=== PATIENT | female | born 1965 | race Caucasian/White ===

== ENCOUNTER 2017-01-04 17:04 | Inpatient (IN) | payer MEDICAID ==
[2017-01-04 22:55] VITALS: BMI 19.5
--- NOTE | 2017-01-04 23:58 | CP.PCM.HP ---
History of Present Illness - History of Present Illness History of Present Illness: PCP: None Chief complaint: CVA with Left side weakness HPI: The hx is obtained from the Patient's family and the medical records. She is a 51 years old female with no past medical hx who was admitted at the [facility] on 01/01/17 with left side weakness, disarthria and a BP of 223/70mmHg. Diagnosed with Hypertensive Hemorrhagic CVA, Bleeding in the Right Basal Ganglia. Neurosurgery recommended no surgical intervention and conservative management. She was discharged and transferred to the [facility] for continued care and rehabilitation. The patient through an photogrammetric engineer referred no headaches, dizziness, vision disturbance, nadusea, vomits, cough, chest pain nor SOB. 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 absent: Chills, Fever, Headache - EENT Eyes: absent: Diplopia, Floaters, Photophobia, Requires Corrective Lenses Ears: absent: Decreased Hearing, Ear Discharge, Ear Pain, Tinnitus Nose/Mouth/Throat: absent: Epistaxis, Nasal Congestion, Nasal Discharge, Sinus Pain, Sinus Pressure - Cardiovascular Cardiovascular: absent: Chest Pain, Dyspnea, Edema - Respiratory Respiratory: absent: Cough, Dyspnea, Wheezing, Stridor - Gastrointestinal Gastrointestinal: absent: Abdominal Pain, Constipation, Diarrhea, Nausea, Vomiting - Genitourinary Genitourinary: absent: Dysuria, Flank Pain, Hematuria - Musculoskeletal Musculoskeletal: Muscle Weakness. absent: Arthralgias, Joint Swelling, Myalgias , Numbness - Integumentary Integumentary: absent: Pruritus, Rash, Skin Ulcer, Sores, Striae, Swelling - Neurological Neurological: Loss of Vision, Weakness. absent: Confusion, Dizziness, Headaches - Psychiatric Psychiatric: absent: Panic Attacks Additional comments: Schizophrenia - Endocrine Endocrine: absent: Palpitations, Polydipsia, Polyphagia, Polyuria - Hematologic/Lymphatic Hematologic: absent: Easy Bleeding, Easy Bruising Past Patient History - Past Medical History & Family History Past Medical History?: Yes - Past Social History Smoking Status: Never Smoked Chewing Tobacco Use: No Cigar Use: No Alcohol: None Drugs: Denies Home Situation {Lives}: With Family - CARDIAC Hx Cardiac Disorders: No - PULMONARY Hx Respiratory Disorders: No - NEUROLOGICAL Hx Neurological Disorder: No - HEENT Hx HEENT Problems: No - RENAL Hx Chronic Kidney Disease: No - ENDOCRINE/METABOLIC Hx Endocrine Disorders: No - HEMATOLOGICAL/ONCOLOGICAL Hx Blood Disorders: No - INTEGUMENTARY Hx Dermatological Problems: No - MUSCULOSKELETAL/RHEUMATOLOGICAL Hx Musculoskeletal Disorders: No Hx Falls: Yes - GASTROINTESTINAL Hx Gastrointestinal Disorders: No - GENITOURINARY/GYNECOLOGICAL Hx Genitourinary Disorders: No - PSYCHIATRIC Hx Schizophrenia: Yes Hx Substance Use: No - SURGICAL HISTORY Hx Surgeries: No - ANESTHESIA Hx Anesthesia: No Hx Anesthesia Reactions: No Meds Allergies/Adverse Reactions: Allergies Allergy/AdvReac Type Severity Reaction Status Date / Time No Known Allergies Allergy Verified 01/04/17 22:55 Physical Exam - Constitutional Appears: No Acute Distress - Head Exam Head Exam: ATRAUMATIC, NORMAL INSPECTION, NORMOCEPHALIC - Eye Exam Eye Exam: EOMI, Normal appearance Pupil Exam: NORMAL ACCOMODATION, PERRL, Unequal - ENT Exam ENT Exam: Mucous Membranes Moist, Normal Exam, Normal External Ear Exam, Normal Oropharynx Additional comments: bottom dentures - Neck Exam Neck exam: Positive for: Full Rom, Normal Inspection. Negative for: Lymphadenopathy, Tenderness - Respiratory Exam Respiratory Exam: Clear to Auscultation Bilateral. absent: Rales, Rhonchi, Wheezes - Cardiovascular Exam Cardiovascular Exam: REGULAR RHYTHM, RRR, +S1, +S2. absent: Gallop, JVD - GI/Abdominal Exam GI & Abdominal Exam: Normal Bowel Sounds, Soft. absent: Mass, Organomegaly, Tenderness - Rectal Exam Rectal Exam: Deferred - Extremities Exam Extremities exam: Positive for: normal inspection. Negative for: calf tenderness, joint swelling, pedal edema - Back Exam Back exam: NORMAL INSPECTION. absent: CVA tenderness (L), CVA tenderness (R) - Neurological Exam Neurological exam: Alert, Reflexes Normal Additional comments: Awake alert, Oriented x3; Left facial droop, Slow mentation, Motor Strength4/5 at left upper and left lower extremities, sensibility to light touch conserved. DTR conserved. - Psychiatric Exam Psychiatric exam: Flat Affect - Skin Skin Exam: Dry, Intact, Normal Color, Warm Results - Labs Labs: 01/04/17 Hb: 11.8 Ht: 36 WBC: 8.6 Na+: 134 K+: 3.9 BUN: 15 Creatinine: 1.3 Assessment & Plan - Assessment and Plan (Free Text) Assessment: #.Hypertensive Hemorrhagic Stroke Plan: 51 years old female with no past medical hx who was admitted at the [facility] on 01/01/17 with left side weakness, disarthria and a BP of 223/70mmHg. Diagnosed with Hypertensive Hemorrhagic CVA, Bleeding in the Right Basal Ganglia. She was transferred to the [facility] for continued care and rehabilitation. #. Hypertensive Hemorrhagic Stroke - Consult Dr Figueroa Meter Reading Clerk - OT/PT - Amlodipin 5mg BID - Lisinopril !)mg Daily - Labetalol 100mg TID - start ASA 81mg after one week - Start Lipitor after lipid panel - follow up with Jagjit Donnelly MD in one week #. Schizophrenia - consult Dr Abebe Psychiatrist - ([id number] daily/ arixept 10mg daily/ Abilify 10mg daily) on hold #. DVT prophylaxis with SCD #. Stress ulcer prophylaxis with Pantoprazole #. Code Status: Full - Date & Time Date: 01/04/17 Time: 23:58
[2017-01-05 07:44] LABS: BASO % 0.6 % (0.0-2.0); EOS # 0.2 K/uL (0.0-0.7); EOS % 1.9 % (0.0-4.0); HEMATOCRIT 35.7 % (34.0-47.0); LYMPH # 2.1 K/uL (1.0-4.3); LYMPH % 24.9 % (20.0-40.0); MEAN CELL VOLUME 84.4 fl (81.0-99.0); MEAN CORPUSCULAR HEMOGLOBIN 27.8 pg (27.0-31.0); MEAN CORPUSCULAR HGB CONC 32.9 g/dL (33.0-37.0); MEAN PLATELET VOLUME 10.1 fl (7.2-11.7); MONO # 0.7 K/uL (0.0-0.8); MONO % 8.7 % (0.0-10.0); NEUT # 5.4 K/uL (1.8-7.0); NEUT % 63.9 % (50.0-75.0); NRBC % 0.1 % (0.0-0.0); RED CELL DISTRIBUTION WIDTH 14.9 % (11.5-14.5); WHITE BLOOD COUNT 8.4 K/uL (4.8-10.8)
[2017-01-05 07:55] LABS: CALCIUM 9.6 mg/dL (8.4-10.2); POTASSIUM 4.5 MMOL/L (3.6-5.0)
[2017-01-05 08:48] LABS: PARTIAL THROMBOPLASTIN TIME 27.7 Seconds (25.6-37.1)
[2017-01-05] MEDS: Pantoprazole 40 mg EC Tab PO SCH (08:53)
--- NOTE | 2017-01-05 18:40 | CP.PCM.PN ---
Subjective - Date & Time of Evaluation Date of Evaluation: 01/05/17 Time of Evaluation: 18:39 - Subjective Subjective: ICH Objective - Vital Signs/Intake and Output Vital Signs (last 24 hours): Temp Pulse Resp BP Pulse Ox 97.2 F L 63 19 133/55 L 99 01/05/17 10:00 01/05/17 16:26 01/05/17 10:00 01/05/17 16:26 01/05/17 10:00 - Medications Medications: Current Medications Amlodipine Besylate (Norvasc) 5 mg PO BID [facility] Last Admin: 01/05/17 16:26 Dose: 5 mg Labetalol HCl (Trandate) 100 mg PO TID [facility] Last Admin: 01/05/17 16:25 Dose: 100 mg Lisinopril (Zestril) 10 mg PO DAILY [facility] Last Admin: 01/05/17 08:53 Dose: 10 mg Pantoprazole Sodium (Protonix Ec Tab) 40 mg PO DAILY [facility] Last Admin: 01/05/17 08:53 Dose: 40 mg - Labs Labs: 01/05/17 07:26 01/05/17 07:26 PT 11.7 Seconds (9.8-13.1) 01/05/17 07:26 INR 1.0 (0.9-1.2) 01/05/17 07:26 APTT 27.7 Seconds (25.6-37.1) 01/05/17 07:26 Physiatry Overall Plan of Care - Overall Plan of Care Estimated Length of Stay in Weeks: 3 Rehab Impairment: Mobility, Gait, Cognition, Speech, Balance, Coordination Etiologic Diagnosis: Cerebrovascular Accident Rehab/Medical Prognosis: Fair - Anticipated Interventions Physical Therapy:: Yes Occupational Therapy:: Yes Speech Therapy:: Yes Recreational Therapy:: Yes - Therapy Goals Bed Mobility: Supervision Ambulation: Supervision Functional Positional Changes:: Supervision - Discharge Plan Discharge Destination: Home
--- NOTE | 2017-01-05 18:44 | CP.PCM.CON ---
History of Present Illness - History of Present Illness History of Present Illness: Dr Xiong coverage for Dr Figueroa. Simón Vega, born 1965 has been admitted to [facility] for acute inpatient rehabilitation following an ICH right BG area. Review of Systems - Constitutional Constitutional: absent: Chills - EENT Eyes: absent: Blurred Vision Ears: absent: Decreased Hearing Nose/Mouth/Throat: absent: Nasal Congestion - Cardiovascular Cardiovascular: absent: Chest Pain - Respiratory Respiratory: absent: Dyspnea - Gastrointestinal Gastrointestinal: absent: Abdominal Pain - Musculoskeletal Musculoskeletal: absent: Arthralgias - Neurological Neurological: absent: Abnormal Hearing, Abnormal Movements, Dizziness - Psychiatric Psychiatric: Abnormal Sleep Pattern Past Patient History - Past Medical History & Family History Past Medical History?: Yes - Past Social History Smoking Status: Never Smoked Chewing Tobacco Use: No Cigar Use: No Alcohol: None Drugs: Denies Home Situation {Lives}: With Family - CARDIAC Hx Hypertension: Yes - PULMONARY Hx Respiratory Disorders: No - NEUROLOGICAL Hx Neurological Disorder: No - HEENT Hx HEENT Problems: No - RENAL Hx Chronic Kidney Disease: No - ENDOCRINE/METABOLIC Hx Endocrine Disorders: No - HEMATOLOGICAL/ONCOLOGICAL Hx Blood Disorders: No - INTEGUMENTARY Hx Dermatological Problems: No - MUSCULOSKELETAL/RHEUMATOLOGICAL Hx Musculoskeletal Disorders: No Hx Falls: Yes - GASTROINTESTINAL Hx Gastrointestinal Disorders: No - GENITOURINARY/GYNECOLOGICAL Hx Genitourinary Disorders: No - PSYCHIATRIC Hx Schizophrenia: Yes Hx Substance Use: No - SURGICAL HISTORY Hx Surgeries: No - ANESTHESIA Hx Anesthesia: No Hx Anesthesia Reactions: No Meds Allergies/Adverse Reactions: Allergies Allergy/AdvReac Type Severity Reaction Status Date / Time No Known Allergies Allergy Verified 01/04/17 22:55 - Medications Medications: Current Medications Amlodipine Besylate (Norvasc) 5 mg PO BID [facility] Last Admin: 01/05/17 16:26 Dose: 5 mg Labetalol HCl (Trandate) 100 mg PO TID [facility] Last Admin: 01/05/17 16:25 Dose: 100 mg Lisinopril (Zestril) 10 mg PO DAILY [facility] Last Admin: 01/05/17 08:53 Dose: 10 mg Pantoprazole Sodium (Protonix Ec Tab) 40 mg PO DAILY [facility] Last Admin: 01/05/17 08:53 Dose: 40 mg Physical Exam - Constitutional Appears: Non-toxic, No Acute Distress - Head Exam Head Exam: ATRAUMATIC, NORMAL INSPECTION, NORMOCEPHALIC - Eye Exam Eye Exam: EOMI - ENT Exam ENT Exam: Mucous Membranes Moist - Respiratory Exam Respiratory Exam: NORMAL BREATHING PATTERN - Cardiovascular Exam Cardiovascular Exam: REGULAR RHYTHM - GI/Abdominal Exam GI & Abdominal Exam: Normal Bowel Sounds - Extremities Exam Extremities exam: Negative for: calf tenderness - Neurological Exam Neurological exam: Alert (She was not able to answer all of my questions, but did follow one step commands with me easily. She was quite groggy. I will reapproach the rest of the neuro examination tomorrow) - Psychiatric Exam Psychiatric exam: Flat Affect Results - Vital Signs Recent Vital Signs: Last Vital Signs Temp 97.2 F L 01/05/17 10:00 Pulse 63 01/05/17 16:26 Resp 19 01/05/17 10:00 BP 133/55 L 01/05/17 16:26 Pulse Ox 99 01/05/17 10:00 - Labs Result Diagrams: 01/05/17 07:26 01/05/17 07:26 Labs: Laboratory Results - last 24 hr 01/05/17 01/05/17 01/05/17 07:26 07:26 07:26 WBC 8.4 RBC 4.22 Hgb 11.7 L Hct 35.7 MCV 84.4 MCH 27.8 MCHC 32.9 L RDW 14.9 H Plt Count 183 MPV 10.1 Neut % (Auto) 63.9 Lymph % (Auto) 24.9 [place] % (Auto) 8.7 Eos % (Auto) 1.9 Baso % (Auto) 0.6 Neut # 5.4 Lymph # 2.1 [place] # 0.7 Eos # 0.2 Baso # 0.0 PT 11.7 INR 1.0 APTT 27.7 Sodium 138 Potassium 4.5 Chloride 99 Carbon Dioxide 29 Anion Gap 14 BUN 22 H Creatinine 1.4 H Est GFR ( Amer) 48 Est GFR (Non-Af Amer) 40 Random Glucose 95 Calcium 9.6 Triglycerides 142 Cholesterol 186 LDL Cholesterol Direct 84 HDL Cholesterol 52 Assessment & Plan - Assessment and Plan (Free Text) Assessment: PT/OT to continue to help increase functional independence Team conference for d/c planning Pain: controlled Vascular: no evidence of DVT GI: No evidence of constipation or diarrhea Patient is an excellent acute rehabilitation candidate and will have focused speech, PT, OT and recreational therapy to help facilitate a safe and appropriate d/c plan impairment code 01.1 no focal strength deficit but reduced coordination left UE limited ambulation reported as only 10' with balance issues
[2017-01-06] MEDS: Pantoprazole 40 mg EC Tab PO SCH (08:52)
--- NOTE | 2017-01-06 10:27 | CP.PCM.PN ---
Subjective - Date & Time of Evaluation Date of Evaluation: 01/06/17 Time of Evaluation: 10:00 - Subjective Subjective: Hospitalist Progress Note (Patient was seen and examined at 10:00 AM 01/06/17 620- 1) 51 year old female who was admitted to [facility] on 01/01/17 with complaints of left sided weakness, dysarthria, and elevated blood pressure (223/ 70). CT Head 01/01/17 revealed 3.6x1.7cm acute hemorrhage in Right Basal Ganglia. CH Head 01/04/17 showed no significant interval change in size of the acute hematoma in Right Basal Ganglia with moderate surrounding vasgogenic edema and mild mass effect on the right lateral ventricle without midline shift or herniation. MRI Brain 01/04/17 showed 3.8x1.9cm acute hematoma in Right Basal Ganglia. MRA Brain 01/04/17 showed short segment stenosis in the Left Mid M1 Segment and attenuation of the perisylvian branches, multifocal stenosis in the bilateral posterior cerebral arteries. Consultation with Neurosurgeon Dr. Fine while at [facility] revealed no surgical intervention at that time. She was also seen by Neurologist Dr. Ramos while at [facility] and it was recommended by him to start ASA and a Statin 2 weeks from 01/04/17 for the stenotic lesions revealed by the MRA Brain 01/04/17. Her blood pressure medications were optimized and patient was then transferred to [facility] on 01/04/17 for PT/OT. Currently upon FULL ROS there is NO chest pain, NO palpitations, NO SOB/Cough/ Wheezing, NO dysphagia/odynophagia, NO abdominal pain, NO n/v/d/c, NO black/ bloody stools, NO burning/pain with urination, NO lightheadedness/dizziness ( she explaines that she did have this prior to her admission to [facility]) , NO new changes in vision/eye pain/blurriness of vision, NO new changes in hearing/loss of hearing/ear pain, NO headaches, NO paresthesias (she states that during the night last night she had an episode of sesnation that her lower legs were numb that lasted less then 2 minutes and has not felt it since then), (+) Complains of muscle weakness in the bilateral lower legs Exam: GENERAL: AAOX3 (she knows where she is, what institution she was in, what happened to her, today's date), NAD, she is holding a conversation with me revealing that she lives with her here in [place] for the past 20 years and traveled to [place] last roughly 3 years ago when she was placed on unspecified medications for her "brain weakness" which she believes to have caused her current stroke. I explained to her that the reason she had the stroke was likely due to uncontrolled blood pressure and she understand this. I did not notice any dysarthria although it times there was a pause before she answered my questions (this may have been secondary to my different pronunciation of words in [place]jar[place], which is the language that I used to communicated with her). HEENT: NCA, EOMI, PERRLA, NO thyromegaly, NO cervical/supraclavicular/ submandibular lymphadenopathy, NO pharyngeal erythema/exudate, Oral Mucosa and Nasal Turbinates are dry. Cardio: NS1 and NS2, NO M/R/G Resp: CTA B/L, NO R/R/W GI: BSx4, Soft, NT, ND, NO HSM, NO guarding/rebound tenderness Ext: NO edema, Capillary Refill is 2 seconds, Pulses are strong and equal Neuro: CN II through XII are grossly intact, 5/5 strength with with flexion and extension of the bilateral UE and LE against my resistance, 2/4 DTR of the bilateral UE and LE Assessment and Plan: 1). Right Basal Ganglia Hemorrhagic CVA & Stenotic Lesion in Cerebral Circulation Please see HPI above for brief findings on radiology studies performed at [facility] Start ASA and Statin 14 days from 01/04/17 as per Neurology It was recommended by discharging [facility] Physician that patient will need follow up with Neurology Dr. Ramos and consult has been placed Controll the blood pressure with Norvasc, Lisinopril, and Labetolol (please see Assessment and Plan #2) Continue PT/OT: I spoke with therapist and patient having difficulty transferring from seated to standing position and requiring assistance at this time 2). HTN Norvasc 5 mg PO 2x/day Labetalol 100 mg PO TID Lisinopril 10 mg PO 1x/day 3). Hx Schizophrenia Apparently patient was placed on Abilify 10 mg PO 1x/day, Aricept 10 mg PO 1x/ day, and Zyprexa 5 mg PO 1x/day by a Psychiatrist in [facility] the last time patient was there roughly 3 years agon in 2013. These medications were held while patient was in [facility] secondary to the patient's family stating that patient had developed right hand tremor as well as difficulty with speech. Again, I did not note any tremors of any of the extremities and did not note any difficulty with speech at the time of my exam today which is the first day that I am seeing her. F/U further recommendations from Psychiatry whose help is appreciated. 4). Prophylactic Measures Protonix 40 mg PO 1x/day for GI Prophylaxis Bilateral Sukhdev Stockings for DVT Prophylaxis (no anticoagulation for now considering the hemorrhagic CVA) Speech Therapy PT/OT Objective - Vital Signs/Intake and Output Vital Signs (last 24 hours): Temp Pulse Resp BP Pulse Ox 98.1 F 67 19 105/50 L 99 01/06/17 08:16 01/06/17 08:53 01/06/17 08:16 01/06/17 08:53 01/06/17 08:16 - Medications Medications: Current Medications Amlodipine Besylate (Norvasc) 5 mg PO BID [facility] Last Admin: 01/06/17 08:51 Dose: Not Given Labetalol HCl (Trandate) 100 mg PO TID [facility] Last Admin: 01/06/17 08:52 Dose: Not Given Lisinopril (Zestril) 10 mg PO DAILY [facility] Last Admin: 01/06/17 08:53 Dose: Not Given Pantoprazole Sodium (Protonix Ec Tab) 40 mg PO DAILY [facility] Last Admin: 01/06/17 08:52 Dose: 40 mg - Labs Labs: 01/05/17 07:26 01/05/17 07:26 PT 11.7 Seconds (9.8-13.1) 01/05/17 07:26 INR 1.0 (0.9-1.2) 01/05/17 07:26 APTT 27.7 Seconds (25.6-37.1) 01/05/17 07:26
--- NOTE | 2017-01-06 14:14 | CP.PCM.CON ---
History of Present Illness - History of Present Illness History of Present Illness: psychiatry consult ordered by dr. moreira reason: ? continue psych medications cc: i see my psychiatrist in [place], not here hpi: pt admitted after a cva. she has been taking psychiatric medications and apparently dx with schizophrenia. per reports family stated meds were making tremor in hand and pt's tongue heavy. pt denies having these symptoms. she is guarded and not giving detailed answers to questions. there is no evidence of psychosis currently. no family is present, but pt states i could talk to family tomorrow when they visit. past psych: per chart on zyprexa 5mg daily, abilify 10mg daily and aricept. denies prior psychiatric hospitalizations. treatment providers in [place]. medical history: see dr. moreira's history/physical social history: lives with family mse: alert, oriented x 3. speech is slow, guarded, vague. memory appears to be grossly intact. denies any si/hi. denies any a/v hallucinations. fair i/j assessment: schizophrenia by history ? dementia? recommendations: can restart only the zyprexa for now will try to meet with family when they are present sw can refer pt to outpatient psychiatrist when she is discharged form the hospital. aricept- would defer to neurology regarding restarting this medication Past Patient History - Past Medical History & Family History Past Medical History?: Yes - Past Social History Smoking Status: Never Smoked Chewing Tobacco Use: No Cigar Use: No Alcohol: None Drugs: Denies Home Situation {Lives}: With Family - CARDIAC Hx Hypertension: Yes - PULMONARY Hx Respiratory Disorders: No - NEUROLOGICAL Hx Neurological Disorder: No - HEENT Hx HEENT Problems: No - RENAL Hx Chronic Kidney Disease: No - ENDOCRINE/METABOLIC Hx Endocrine Disorders: No - HEMATOLOGICAL/ONCOLOGICAL Hx Blood Disorders: No - INTEGUMENTARY Hx Dermatological Problems: No - MUSCULOSKELETAL/RHEUMATOLOGICAL Hx Musculoskeletal Disorders: No Hx Falls: Yes - GASTROINTESTINAL Hx Gastrointestinal Disorders: No - GENITOURINARY/GYNECOLOGICAL Hx Genitourinary Disorders: No - PSYCHIATRIC Hx Schizophrenia: Yes Hx Substance Use: No - SURGICAL HISTORY Hx Surgeries: No - ANESTHESIA Hx Anesthesia: No Hx Anesthesia Reactions: No Meds Allergies/Adverse Reactions: Allergies Allergy/AdvReac Type Severity Reaction Status Date / Time No Known Allergies Allergy Verified 01/04/17 22:55 - Medications Medications: Current Medications Amlodipine Besylate (Norvasc) 5 mg PO BID [facility] Last Admin: 01/06/17 08:51 Dose: Not Given Labetalol HCl (Trandate) 100 mg PO TID [facility] Last Admin: 01/06/17 12:28 Dose: 100 mg Lisinopril (Zestril) 10 mg PO DAILY [facility] Last Admin: 01/06/17 08:53 Dose: Not Given Olanzapine (Zyprexa) 5 mg PO [facility] Pantoprazole Sodium (Protonix Ec Tab) 40 mg PO DAILY [facility] Last Admin: 01/06/17 08:52 Dose: 40 mg Results - Vital Signs Recent Vital Signs: Last Vital Signs Temp 98.1 F 01/06/17 08:16 Pulse 64 01/06/17 12:28 Resp 19 01/06/17 08:16 BP 145/70 01/06/17 12:28 Pulse Ox 99 01/06/17 08:16 - Labs Result Diagrams: 01/05/17 07:26 01/05/17 07:26
--- NOTE | 2017-01-06 16:24 | CP.PCM.CON ---
History of Present Illness - History of Present Illness History of Present Illness: Mrs. Vega is a 51-year-old woman who is well known to me since her previous admission to the ICU for right basal ganglia hypertensive intraparenchymal hemorrhage. She was stabilized and transferred to acute rehab where I saw her today. She had no complaints today and denied headache, visual changes, new weakness or any sensory changes. She participated well with rehab today. Review of Systems - Review of Systems All systems: reviewed and no additional remarkable complaints except - Constitutional Constitutional: absent: As Per HPI, Anorexia, Chills, Daytime Sleepiness, Excessive Sweating, Fatigue, Fever, Frequent Falls, Headache, Increased Appetite , Lethargy, Malaise, Night Sweats, Snoring, Sleep Apnea, Weight Gain, Weight Loss, Weakness, Other - EENT Eyes: absent: As Per HPI, Blind Spots, Blurred Vision, Change in Vision, Decreased Night Vision, Diplopia, Discharge, Dry Eye, Exophthalmos, Floaters, Irritation, Itchy Eyes, Loss of Peripheral Vision, Pain, Photophobia, Requires Corrective Lenses, Sees Flashes, Spots in Vision, Tunnel Vision, Other Visual Disturbances, Loss of Vision, Other Ears: absent: As Per HPI, Decreased Hearing, Ear Discharge, Ear Pain, Tinnitus, Abnormal Hearing, Disequilibrium, Dizziness, Other Nose/Mouth/Throat: absent: As Per HPI, Epistaxis, Nasal Congestion, Nasal Discharge, Nasal Obstruction, Nasal Trauma, Nose Pain, Post Nasal Drip, Sinus Pain, Sinus Pressure, Bleeding Gums, Change in Voice, Dental Pain, Dry Mouth, Dysphagia, Halitosis, Hoarsness, Lip Swelling, Mouth Lesions, Mouth Pain, Odynophagia, Sore Throat, Throat Swelling, Tongue Swelling, Facial Pain, Neck Pain, Neck Mass, Other - Cardiovascular Cardiovascular: absent: As Per HPI, Acrocyanosis, Chest Pain, Chest Pain at Rest , Chest Pain with Activity, Claudication, Diaphoresis, Dyspnea, Dyspnea on Exertion, Edema, Irregular Heart Rhythm, Pain Radiating to Arm/Neck/Jaw, Leg Edema, Leg Ulcers, Lightheadedness, Orthopnea, Palpitations, Paroxysmal Nocturnal Dyspnea, Pedal Edema, Radiating Pain, Rapid Heart Rate, Slow Heart Rate, Syncope, Other - Respiratory Respiratory: absent: As Per HPI, Cough, Dyspnea, Hemoptysis, Dyspnea on Exertion , Wheezing, Snoring, Stridor, Pain on Inspiration, Chest Congestion, Excessive Mucous Production, Change in Mucous Color, Pain with Coughing, Other - Gastrointestinal Gastrointestinal: absent: As Per HPI, Abdominal Pain, Belching, Bloating, Change in Bowel Habits, Change in Stool Character, Coffee Ground Emesis, Constipation, Cramping, Diarrhea, Dyspepsia, Dysphagia, Early Satiety, Excessive Flatus, Fecal Incontinence, Heartburn, Hematemesis, Hematochezia, Loose Stools, Melena, Nausea, Odynophagia, Temesmus, Vomiting, Other - Genitourinary Genitourinary: absent: As Per HPI, Change in Urinary Stream, Difficulty Urinating, Dysuria, Flank Pain, Hematuria, Pyuria, Nocturia, Urinary Incontinence, Urinary Frequency, Urinary Hesitance, Urinary Urgency, Voiding Freq/Small Amts, Freq UTI, Hx Renal/Bladder Calculi, Hx /Renal Surgery, Bladder Distension, Other - Musculoskeletal Musculoskeletal: absent: As Per HPI, Abnormal Gait, Arthralgias, Atrophy, Back Pain, Deformity, Joint Swelling, Limited Range of Motion, Loss of Height, Muscle Cramps, Muscle Weakness, Myalgias, Neck Pain, Numbness, Radiating Pain into Limb, Stiffness, Tingling, Other - Integumentary Integumentary: absent: As Per HPI, Acne, Alopecia, Bleeding Lesions, Change in Hair, Change in Nails, Change in Pigmentation, Changing Lesions, Dry Skin, Erythema, Furuncle, Hirsutism, Lesions, New Lesions, Non-Healing Lesions, Photosensitivity, Pruritus, Rash, Skin Pain, Skin Ulcer, Sores, Striae, Swelling , Unusual Bruising, Wounds, Jaundice, Other - Neurological Neurological: As Per HPI - Psychiatric Additional comments: history of schizophrenia - Endocrine Endocrine: absent: As Per HPI, Change in Body Appearance, Change in Libido, Cold Intolorance, Deepening of Voice, Excessive Sweating, Fatigue, Flushing, Heat Intolorance, Increase in Ring/Shoe/Hat Size, Palpitations, Polydipsia, Polyphagia, Polyuria, Other - Hematologic/Lymphatic Hematologic: absent: As Per HPI, Easy Bleeding, Easy Bruising, Lymphadenopathy, Other Past Patient History - Past Medical History & Family History Past Medical History?: Yes - Past Social History Smoking Status: Never Smoked Chewing Tobacco Use: No Cigar Use: No Alcohol: None Drugs: Denies Home Situation {Lives}: With Family - CARDIAC Hx Hypertension: Yes - PULMONARY Hx Respiratory Disorders: No - NEUROLOGICAL Hx Neurological Disorder: No - HEENT Hx HEENT Problems: No - RENAL Hx Chronic Kidney Disease: No - ENDOCRINE/METABOLIC Hx Endocrine Disorders: No - HEMATOLOGICAL/ONCOLOGICAL Hx Blood Disorders: No - INTEGUMENTARY Hx Dermatological Problems: No - MUSCULOSKELETAL/RHEUMATOLOGICAL Hx Musculoskeletal Disorders: No Hx Falls: Yes - GASTROINTESTINAL Hx Gastrointestinal Disorders: No - GENITOURINARY/GYNECOLOGICAL Hx Genitourinary Disorders: No - PSYCHIATRIC Hx Schizophrenia: Yes Hx Substance Use: No - SURGICAL HISTORY Hx Surgeries: No - ANESTHESIA Hx Anesthesia: No Hx Anesthesia Reactions: No Meds Allergies/Adverse Reactions: Allergies Allergy/AdvReac Type Severity Reaction Status Date / Time No Known Allergies Allergy Verified 01/04/17 22:55 - Medications Medications: Current Medications Amlodipine Besylate (Norvasc) 5 mg PO BID [facility] Last Admin: 01/06/17 08:51 Dose: Not Given Labetalol HCl (Trandate) 100 mg PO TID [facility] Lisinopril (Zestril) 10 mg PO DAILY [facility] Last Admin: 01/06/17 08:53 Dose: Not Given Olanzapine (Zyprexa) 5 mg PO HS [facility] Pantoprazole Sodium (Protonix Ec Tab) 40 mg PO DAILY [facility] Last Admin: 01/06/17 08:52 Dose: 40 mg Physical Exam - Constitutional Appears: Well - Head Exam Head Exam: ATRAUMATIC, NORMAL INSPECTION, NORMOCEPHALIC - Eye Exam Eye Exam: EOMI, Normal appearance, PERRL - ENT Exam ENT Exam: Mucous Membranes Moist, Normal Exam - Neck Exam Neck exam: Positive for: Normal Inspection - Respiratory Exam Respiratory Exam: Clear to Auscultation Bilateral, NORMAL BREATHING PATTERN - Cardiovascular Exam Cardiovascular Exam: REGULAR RHYTHM, +S1, +S2 - GI/Abdominal Exam GI & Abdominal Exam: Normal Bowel Sounds, Soft. absent: Tenderness - Rectal Exam Rectal Exam: Deferred - Extremities Exam Extremities exam: Positive for: normal inspection - Back Exam Back exam: NORMAL INSPECTION - Neurological Exam Neurological exam: Alert, CN II-XII Intact, Oriented x3 - Expanded Neurological Exam Expanded Patient oriented to: person, place Cranial nerves: EOM's Intact: Normal, Facial Palsey w/Forehead Movement: Normal , Facial Sensation: Normal, Gag Reflex: Normal Cerebellar Function: Finger to Nose: Normal, Heel to Jones: Normal Upper motor neuron: Babinski Sign: Abnormal Left Sensory exam: Lower Extremity Light Touch: Normal, Lower Extremity Pin Prick: Normal, Upper Extremity Light Touch: Normal, Upper Extremity Pin Prick: Normal Neuro motor strength exam: Left Upper Extremity: 4, Right Upper Extremity: 5, Left Lower Extremity: 4, Right Lower Extremity: 5 DTR: Bicep Left: 3+, Bicep Right: 2+, Brachioradialis Left: 3+, Brachioradialis Right: 2+, Patellar Left: 3+, Patellar Right: 2+ - Psychiatric Exam Psychiatric exam: Normal Affect, Normal Mood - Skin Skin Exam: Dry, Intact, Normal Color, Warm Results - Vital Signs Recent Vital Signs: Last Vital Signs Temp 98.1 F 01/06/17 08:16 Pulse 64 01/06/17 12:28 Resp 19 01/06/17 08:16 BP 145/70 01/06/17 12:28 Pulse Ox 99 01/06/17 08:16 - Labs Result Diagrams: 01/05/17 07:26 01/05/17 07:26 Assessment & Plan (1) Basal ganglia hemorrhage Assessment and Plan: Continue good BP management and resume PT/OT per the rehab team plan. May start aspirin 81 mg daily in one week for stroke prevention considering the M1 stenosis on the left MCA that was shown in the most recent MRA of the head. I recommend obtaining a repeat CT of the head without contrast prior to starting aspirin. DVT Px is okay with heparin. Risk factor management and low salt diet is also recommended. Thank you for this consultation. Status: Acute Priority: High
--- NOTE | 2017-01-06 16:38 | CP.PCM.PN ---
Subjective - Date & Time of Evaluation Date of Evaluation: 01/06/17 Time of Evaluation: 16:38 - Subjective Subjective: Patient seen in room with family present good ROM and strength ambulated 200' today with supervision continue current care Objective - Vital Signs/Intake and Output Vital Signs (last 24 hours): Temp Pulse Resp BP Pulse Ox 98.1 F 64 19 145/70 99 01/06/17 08:16 01/06/17 12:28 01/06/17 08:16 01/06/17 12:28 01/06/17 08:16 - Medications Medications: Current Medications Amlodipine Besylate (Norvasc) 5 mg PO BID [facility] Last Admin: 01/06/17 08:51 Dose: Not Given Labetalol HCl (Trandate) 100 mg PO TID [facility] Lisinopril (Zestril) 10 mg PO DAILY [facility] Last Admin: 01/06/17 08:53 Dose: Not Given Olanzapine (Zyprexa) 5 mg PO HS [facility] Pantoprazole Sodium (Protonix Ec Tab) 40 mg PO DAILY [facility] Last Admin: 01/06/17 08:52 Dose: 40 mg - Labs Labs: 01/05/17 07:26 01/05/17 07:26 PT 11.7 Seconds (9.8-13.1) 01/05/17 07:26 INR 1.0 (0.9-1.2) 01/05/17 07:26 APTT 27.7 Seconds (25.6-37.1) 01/05/17 07:26
[2017-01-07] MEDS: Pantoprazole 40 mg EC Tab PO SCH (08:21)
--- NOTE | 2017-01-07 18:05 | CP.PCM.PCO ---
Physician Communication Note - Physician Communication Note Physician Communication Note: Please see above
[2017-01-08] MEDS: Pantoprazole 40 mg EC Tab PO SCH (08:05)
[2017-01-09 07:24] LABS: BASO % 0.5 % (0.0-2.0); EOS # 0.1 K/uL (0.0-0.7); EOS % 2.1 % (0.0-4.0); HEMATOCRIT 36.2 % (34.0-47.0); LYMPH % 29.4 % (20.0-40.0); MEAN CORPUSCULAR HEMOGLOBIN 27.4 pg (27.0-31.0); MEAN CORPUSCULAR HGB CONC 32.2 g/dL (33.0-37.0); MEAN PLATELET VOLUME 10.6 fl (7.2-11.7); MONO # 0.7 K/uL (0.0-0.8); MONO % 9.8 % (0.0-10.0); NEUT % 58.2 % (50.0-75.0); NRBC % 0.1 % (0.0-0.0); WHITE BLOOD COUNT 6.8 K/uL (4.8-10.8)
[2017-01-09 08:21] LABS: CALCIUM 9.6 mg/dL (8.4-10.2); POTASSIUM 4.4 MMOL/L (3.6-5.0)
[2017-01-09] MEDS: Pantoprazole 40 mg EC Tab PO SCH (08:27)
--- NOTE | 2017-01-09 12:21 | CP.PCM.PN ---
Subjective - Date & Time of Evaluation Date of Evaluation: 01/09/17 Time of Evaluation: 12:18 - Subjective Subjective: tolerating pt well no complaints denies chest pain dyspnea per staff, patient is improving Objective - Vital Signs/Intake and Output Vital Signs (last 24 hours): Temp Pulse Resp BP Pulse Ox 98.1 F 68 20 106/60 96 01/09/17 08:07 01/09/17 08:26 01/09/17 08:07 01/09/17 08:26 01/09/17 08:07 - Medications Medications: Current Medications Amlodipine Besylate (Norvasc) 5 mg PO BID [facility] Last Admin: 01/09/17 08:25 Dose: Not Given Labetalol HCl (Trandate) 100 mg PO TID [facility] Last Admin: 01/09/17 08:26 Dose: Not Given Lisinopril (Zestril) 10 mg PO DAILY [facility] Last Admin: 01/09/17 08:26 Dose: Not Given Olanzapine (Zyprexa) 5 mg PO HS [facility] Last Admin: 01/08/17 21:19 Dose: 5 mg Pantoprazole Sodium (Protonix Ec Tab) 40 mg PO DAILY [facility] Last Admin: 01/09/17 08:27 Dose: 40 mg - Labs Labs: 01/09/17 06:30 01/09/17 06:30 PT 11.7 Seconds (9.8-13.1) 01/05/17 07:26 INR 1.0 (0.9-1.2) 01/05/17 07:26 APTT 27.7 Seconds (25.6-37.1) 01/05/17 07:26 - Constitutional Appears: Non-toxic, No Acute Distress - Head Exam Head Exam: ATRAUMATIC, NORMOCEPHALIC - Eye Exam Eye Exam: EOMI, Normal appearance, PERRL Pupil Exam: NORMAL ACCOMODATION - ENT Exam ENT Exam: Mucous Membranes Moist, Normal Oropharynx - Respiratory Exam Respiratory Exam: Clear to Ausculation Bilateral, NORMAL BREATHING PATTERN - Cardiovascular Exam Cardiovascular Exam: RRR, +S1, +S2 - GI/Abdominal Exam GI & Abdominal Exam: Soft, Normal Bowel Sounds. absent: Tenderness - Extremities Exam Extremities Exam: Normal Capillary Refill. absent: Calf Tenderness - Back Exam Back Exam: absent: CVA tenderness (L), CVA tenderness (R) - Neurological Exam Neurological Exam: Alert, Awake - Psychiatric Exam Psychiatric exam: Normal Affect, Normal Mood - Skin Skin Exam: Dry, Warm Assessment and Plan - Assessment and Plan (Free Text) Plan: 51 year old female who was admitted to [facility] on 01/01/17 with complaints of left sided weakness, dysarthria, and elevated blood pressure (223/ 70). CT Head 01/01/17 revealed 3.6x1.7cm acute hemorrhage in Right Basal Ganglia. CH Head 01/04/17 showed no significant interval change in size of the acute hematoma in Right Basal Ganglia with moderate surrounding vasgogenic edema and mild mass effect on the right lateral ventricle without midline shift or herniation. MRI Brain 01/04/17 showed 3.8x1.9cm acute hematoma in Right Basal Ganglia. MRA Brain 01/04/17 showed short segment stenosis in the Left Mid M1 Segment and attenuation of the perisylvian branches, multifocal stenosis in the bilateral posterior cerebral arteries. Consultation with Neurosurgeon Dr. Fine while at [facility] revealed no surgical intervention at that time. She was also seen by Neurologist Dr. Marshall while at [facility] and it was recommended by him to start ASA and a Statin 2 weeks from 01/04/17 for the stenotic lesions revealed by the MRA Brain 01/04/17. Her blood pressure medications were optimized and patient was then transferred to [facility] on 01/04/17 for PT/OT. 1) Right Basal Ganglia Hemorrhagic CVA & Stenotic Lesion in Cerebral Circulation Start ASA and Statin 14 days from 01/04/[address] prior to starting ASA per DR. MARSHALL It was recommended by discharging [facility] Physician that patient will need follow up with Neurology Dr. Marshall and consult has been placed Controll the blood pressure with Norvasc, Lisinopril, and Labetolol Continue PT/OT 2) HTN Norvasc 5 mg PO 2x/day Labetalol 100 mg PO TID Lisinopril 10 mg PO 1x/day 3) Hx Schizophrenia Zyprexa 5 mg PO 1x/day F/U further recommendations from Psychiatry whose help is appreciated. Prophylactic Measures Protonix 40 mg PO Bilateral Sukhdev Stockings for DVT Prophylaxis (no anticoagulation, hemorrhagic CVA ) Speech Therapy PT/OT
--- NOTE | 2017-01-09 18:50 | CP.PCM.PN ---
Subjective - Date & Time of Evaluation Date of Evaluation: 01/09/17 Time of Evaluation: 18:49 - Subjective Subjective: Patient seen in room no pain looking much more animated no sob/cp continue current care still with gait and ADL deficits team conf tomorrow for d/c planning Objective - Vital Signs/Intake and Output Vital Signs (last 24 hours): Temp Pulse Resp BP Pulse Ox 98.1 F 65 20 131/62 96 01/09/17 08:07 01/09/17 16:47 01/09/17 08:07 01/09/17 16:47 01/09/17 08:07 - Medications Medications: Current Medications Amlodipine Besylate (Norvasc) 5 mg PO BID [facility] Last Admin: 01/09/17 16:46 Dose: 5 mg Labetalol HCl (Trandate) 100 mg PO TID [facility] Last Admin: 01/09/17 16:47 Dose: 100 mg Lisinopril (Zestril) 10 mg PO DAILY [facility] Last Admin: 01/09/17 08:26 Dose: Not Given Olanzapine (Zyprexa) 5 mg PO HS [facility] Last Admin: 01/08/17 21:19 Dose: 5 mg Pantoprazole Sodium (Protonix Ec Tab) 40 mg PO DAILY [facility] Last Admin: 01/09/17 08:27 Dose: 40 mg - Labs Labs: 01/09/17 06:30 01/09/17 06:30 PT 11.7 Seconds (9.8-13.1) 01/05/17 07:26 INR 1.0 (0.9-1.2) 01/05/17 07:26 APTT 27.7 Seconds (25.6-37.1) 01/05/17 07:26
[2017-01-10] MEDS: Pantoprazole 40 mg EC Tab PO SCH (08:00)
[2017-01-11] MEDS: Pantoprazole 40 mg EC Tab PO SCH (08:15)
--- NOTE | 2017-01-11 12:10 | PSY.TMCNF ---
Nursing - Vital Signs Vital Signs (Last 8 hours): Vital Signs 01/11/17 01/11/17 01/11/17 07:54 08:15 08:50 Temperature 97.9 F Pulse Rate 81 81 73 Respiratory 19 Rate Blood Pressure 122/68 122/68 134/73 O2 Sat by Pulse 97 Oximetry 01/11/17 10:36 Temperature Pulse Rate 69 Respiratory Rate Blood Pressure 104/64 O2 Sat by Pulse Oximetry Pain: 0 - Medications/Other Issues Comment: Pt at moderate nutritional risk. goals: 1) Pt to consume at least 50- 75% meals without GI upset x 5-7 days. 2) Pt to have no s/s of difficulty mastication/swallowing with current consistency x 5-7 days. 3) Pt weight to remain stable within 2# x 5-7 days. Follow-up due on 01/12/2017 - Bladder Management Bladder Pattern: Normal Voiding Method: Toilet - Bowel Management Bowel Pattern: Normal - Goals/Time Frame Comments: Pt was seen awake and sitting in her wheelchair in her room. Pt's spouse was present in room as well. Recreation therapist spoke to interpretor before on her leisure interests and that pt reported she currently works and does the cooking, cleaning, and taking care of home. Pt lives with and also enjoys television. Pt presents with PMH of schizophrenia and is confused at times when utilizing the telephone interepretation system and prefers either or video in-demand translation system. Pt presents with decrease command following and decrease safety awareness. Pt presents with increase fatigue and flat affect. Physical Therapy - Bed Mobility Bed Mobility: Modified Independent - Transfers Sit to Stand: Supervision - Ambulation Level of Assistance: Modified Independent, Supervision Distance (ft.): 300 Assistive Devices: N/A - Stair Negotiation Stairs: Level of Assistance: Supervision, Verbal Cues, Contact Guard - Standing Balance Static Stand: Supervision Dynamic Stand: Contact Guard Assist - Pain Pain (assessed during therapy session): 0 - Insight/Carryover Insight/Carryover: Fair - Patient/Family Education Comment: -safety, therapy schedule, POC, attention to the left side, use of call gavin, transfers, ADLs and ADL transfer - Assessment/Plan Assessment: Pt is more alert in today's session, smiling and motivated to participate in OT treatment. Pt continues to require MIN A/CGA with ambulatory and dynamic balance tasks, and cues to decrease speed. Pt continues to require skilled OT services 5-6x/week to address coordination, dynamic balance, proprioception, and safety in order to return home - Goals Timeframe: 2 weeks Goals: LTG not met. Patient will complete bed and chair transfers with modified independence. Patient will complete commode transfers with modified independence. Patient will complete tub bench transfers with supervision. Patient will complete upper body dressing with modified independence. Patient will complete lower body dressing with modified independence. Patient will toilet with modified independence. Patient will complete upper body bathing with supervision/setup assistance. Patient will complete lower body bathing with supervision/setup assistance. Patient will complete home management activities with modified independence. - Provider Therapist: Janet Diaz PT, DPT License Number: [id number] Occupational Therapy - Arousal/Attention/Orientation Patient Orientation: Person, Place, Time, Appropriate to Age, Appropriate to Situation - ADL/IADL Self Feeding: Supervision, Set-up Help Grooming: Supervision, Set-up Help Dressing-Upper Extremity: Minimal Assistance Dressing-Lower Extremity: Moderate Assistance - Sitting Balance Static Sitting: Independent without upper extremity support Dynamic Sitting: Requires supervision - Transfers Wheelchair to Bed Transfers: Verbal Cues, Minimal Assistance Toilet Transfers: Verbal Cues, Contact Guard - Wheelchair Management Level of Assistance: Supervision, Set-up Help Distance (ft.): 150 - Upper Extremity Status Right Upper Extremity Comment: ROM WFL MMT grossly 4/5, impaired FMC Left Upper Extremity Comment: ROM WFL MMT grossly 4-/5, impaired FMC - Pain Pain (assessed during therapy session): 0 - Insight/Carryover Insight/Carryover: Fair - Patient/Family Education Comment: -safety, therapy schedule, POC, attention to the left side, use of call gavin, transfers, ADLs and ADL transfer - Assessment/Plan Assessment: Pt is more alert in today's session, smiling and motivated to participate in OT treatment. Pt continues to require MIN A/CGA with ambulatory and dynamic balance tasks, and cues to decrease speed. Pt continues to require skilled OT services 5-6x/week to address coordination, dynamic balance, proprioception, and safety in order to return home - Goals Timeframe: 2 weeks Goals: LTG not met. Patient will complete bed and chair transfers with modified independence. Patient will complete commode transfers with modified independence. Patient will complete tub bench transfers with supervision. Patient will complete upper body dressing with modified independence. Patient will complete lower body dressing with modified independence. Patient will toilet with modified independence. Patient will complete upper body bathing with supervision/setup assistance. Patient will complete lower body bathing with supervision/setup assistance. Patient will complete home management activities with modified independence. - Provider Therapist: Felisa Cullen License Number: [id number] Speech Therapy - Consult Information Patient on Program: Yes Medical Diagnosis: CVA Treatment Diagnosis: 1.) mild-moderate cognitive deficits. 2.) mild dysarthria - Assessment Problem Solving Impairment: Moderate Comment: mild-moderate Memory Impairment: Moderate Comment: mild-moderate Speech/Articulation Impairment: Mild - Plan Assessment: Pt is more alert in today's session, smiling and motivated to participate in OT treatment. Pt continues to require MIN A/CGA with ambulatory and dynamic balance tasks, and cues to decrease speed. Pt continues to require skilled OT services 5-6x/week to address coordination, dynamic balance, proprioception, and safety in order to return home - Provider Therapist: Manisha Lovelace License Number: [id number] Recreational Therapy - Participation Participation: Participates in Individual and/or Group Sessions - Attendance Attendance: 3-5 times per week - Activities Leisure Activities: Cards and Games - Socialization Level of Socialization: Initiates/interacts with caregivers but not with peer - Diversional Time Diversional Time: likes to watch television, cooking, cleaning as per pt's spouse - Assessment Assessment/Plan: Pt is more alert in today's session, smiling and motivated to participate in OT treatment. Pt continues to require MIN A/CGA with ambulatory and dynamic balance tasks, and cues to decrease speed. Pt continues to require skilled OT services 5-6x/week to address coordination, dynamic balance, proprioception, and safety in order to return home - Provider Therapist: Mariya Cintron, [employer] #[id number] Nutrition - Current Diet Current Diet/ Supplement/ Feedings: Heart healthy advanced bite size thin liquids. Vegetarian Type: Vegan/no meat/dairy/egg - Appetite Percent Meal Consumed: 75-100% - Assessment/Goals/Time Frame Assessment/Goals/Time Frame: Pt at moderate nutritional risk. goals: 1) Pt to consume at least 50-75% meals without GI upset x 5-7 days. 2) Pt to have no s/ s of difficulty mastication/swallowing with current consistency x 5-7 days. 3) Pt weight to remain stable within 2# x 5-7 days. Follow-up due on 01/12/2017 - Provider Provider: Susana Carpenter RD Case Management - Discharge Plan Discharge Plan: Home with significant other/family Rehabilitation Plan - Treatment Plan Treatment Plan: Physical Therapy, Occupational Therapy, Speech, Dietary, Patient /Family Education - Recommendation Recommendation: Physical Therapy ( for 17 spouse for training order euipment) , Occupational Therapy, Speech, Dietary, Patient/Family Education
--- NOTE | 2017-01-11 13:19 | CP.PCM.PN ---
Subjective - Date & Time of Evaluation Date of Evaluation: 01/11/17 Time of Evaluation: 13:00 - Subjective Subjective: patient with mild left sided weakness Objective - Vital Signs/Intake and Output Vital Signs (last 24 hours): Temp Pulse Resp BP Pulse Ox 97.9 F 63 19 142/79 97 01/11/17 07:54 01/11/17 12:30 01/11/17 07:54 01/11/17 12:30 01/11/17 07:54 - Medications Medications: Current Medications Amlodipine Besylate (Norvasc) 5 mg PO BID [facility] Last Admin: 01/11/17 08:50 Dose: 5 mg Labetalol HCl (Trandate) 100 mg PO TID [facility] Last Admin: 01/11/17 12:30 Dose: 100 mg Lisinopril (Zestril) 10 mg PO DAILY [facility] Last Admin: 01/11/17 10:36 Dose: Not Given Olanzapine (Zyprexa) 5 mg PO HS [facility] Last Admin: 01/10/17 21:52 Dose: 5 mg Pantoprazole Sodium (Protonix Ec Tab) 40 mg PO DAILY [facility] Last Admin: 01/11/17 08:15 Dose: 40 mg - Labs Labs: 01/09/17 06:30 01/09/17 06:30 PT 11.7 Seconds (9.8-13.1) 01/05/17 07:26 INR 1.0 (0.9-1.2) 01/05/17 07:26 APTT 27.7 Seconds (25.6-37.1) 01/05/17 07:26 - Head Exam Head Exam: ATRAUMATIC, NORMAL INSPECTION, NORMOCEPHALIC - Eye Exam Eye Exam: Normal appearance, PERRL Pupil Exam: NORMAL ACCOMODATION - ENT Exam ENT Exam: Mucous Membranes Moist, Normal Exam - Respiratory Exam Respiratory Exam: NORMAL BREATHING PATTERN - Cardiovascular Exam Cardiovascular Exam: REGULAR RHYTHM - GI/Abdominal Exam GI & Abdominal Exam: Normal Bowel Sounds - Rectal Exam Rectal Exam: NORMAL INSPECTION - Exam External exam: NORMAL EXTERNAL EXAM - Extremities Exam Extremities Exam: Normal Capillary Refill, Normal Inspection - Back Exam Back Exam: NORMAL INSPECTION - Neurological Exam Neurological Exam: Alert, Awake, Normal Gait Neuro motor strength exam: Left Upper Extremity: 3, Right Upper Extremity: 4, Left Lower Extremity: 3, Right Lower Extremity: 4 - Psychiatric Exam Psychiatric exam: Normal Affect, Normal Mood - Skin Skin Exam: Dry, Intact Assessment and Plan (1) Basal ganglia hemorrhage Assessment & Plan: patient discussed during team for DC 17 to get equipment and do family training Status: Acute (2) Elevated troponin Status: Acute (3) Hypertensive emergency Status: Acute (4) Hypertensive intracerebral hemorrhage Assessment & Plan: plan fo rDc home with equipment Status: Acute
--- NOTE | 2017-01-11 15:27 | CP.PCM.PN ---
Subjective - Date & Time of Evaluation Date of Evaluation: 01/11/17 Time of Evaluation: 10:30 - Subjective Subjective: Pt seen and examined. Claimed she was doing alright and denied any complaint. Objective - Vital Signs/Intake and Output Vital Signs (last 24 hours): Temp Pulse Resp BP Pulse Ox 97.9 F 63 19 142/79 97 01/11/17 07:54 01/11/17 12:30 01/11/17 07:54 01/11/17 12:30 01/11/17 07:54 - Medications Medications: Current Medications Amlodipine Besylate (Norvasc) 5 mg PO BID [facility] Last Admin: 01/11/17 08:50 Dose: 5 mg Labetalol HCl (Trandate) 100 mg PO Q8 [facility] Last Admin: 01/11/17 14:19 Dose: Not Given Lisinopril (Zestril) 10 mg PO DAILY [facility] Last Admin: 01/11/17 10:36 Dose: Not Given Olanzapine (Zyprexa) 5 mg PO HS [facility] Last Admin: 01/10/17 21:52 Dose: 5 mg Pantoprazole Sodium (Protonix Ec Tab) 40 mg PO DAILY [facility] Last Admin: 01/11/17 08:15 Dose: 40 mg - Labs Labs: 01/09/17 06:30 01/09/17 06:30 PT 11.7 Seconds (9.8-13.1) 01/05/17 07:26 INR 1.0 (0.9-1.2) 01/05/17 07:26 APTT 27.7 Seconds (25.6-37.1) 01/05/17 07:26 - Constitutional Appears: No Acute Distress - Head Exam Head Exam: ATRAUMATIC - Eye Exam Eye Exam: absent: Scleral icterus - ENT Exam ENT Exam: Mucous Membranes Moist - Neck Exam Neck Exam: absent: Meningismus - Respiratory Exam Respiratory Exam: absent: Rhonchi, Wheezes, Respiratory Distress - Cardiovascular Exam Cardiovascular Exam: REGULAR RHYTHM, +S1, +S2 - GI/Abdominal Exam GI & Abdominal Exam: Soft. absent: Tenderness - Rectal Exam Rectal Exam: Deferred - Extremities Exam Extremities Exam: absent: Calf Tenderness - Back Exam Back Exam: absent: tenderness - Neurological Exam Neurological Exam: Alert, Oriented x3 - Psychiatric Exam Psychiatric exam: Normal Affect - Skin Skin Exam: Dry, Intact Assessment and Plan (1) Basal ganglia hemorrhage Status: Acute (2) HTN (hypertension) Status: Chronic (3) History of schizophrenia Status: Acute (4) DVT prophylaxis Status: Acute - Assessment and Plan (Free Text) Assessment: 51 yo female who admitted at [facility] on 01/01/17 with left sided weakness , dysarthria, and uncontrolled BP. CT of head showed acute hemorrhage on right Basal Ganglia. Neurosurgical consult with Dr Fine was called and he suggested no surgical intervention. Dr Ramos, neurologist, was also consulted and he recommended to hold ASA and statin until 2 weeks from 01/04/2017 because of the stenotic lesions shown on MRA of the brain. BP medications were optimized and patient transferred to acute rehab in [facility] for PT/OT on 01/04/2017. 1) Right Basal Ganglia Hemorrhage Start ASA and Statin 14 days from 01/04/17 as per Neurology (01/18/2017) repeat CT of head prior to starting ASA per Dr Ramos continue control of BP with Norvasc, Lisinopril and Labetalol Continue PT/OT 2) HTN BP stable Norvasc 5 mg PO BID Labetalol 100 mg PO q 8hrs Lisinopril 10 mg PO daily 3) History of Schizophrenia Zyprexa [address] Lynch on psyche consult 4) DVT prophylaxis Bilateral Sukhdev Stockings for DVT Prophylaxis (no anticoagulation, hemorrhagic CVA )
[2017-01-12] MEDS: Pantoprazole 40 mg EC Tab PO SCH (08:23)
--- NOTE | 2017-01-12 14:08 | CT ---
PROCEDURE: CT scan brain dated 01/12/2017 HISTORY: Follow-up intra cerebral hemorrhage COMPARISON: No prior studies available comparison. TECHNIQUE: Contiguous helical/transaxial computed tomography images were obtained through the head/brain without intravenous contrast. Radiation dose: Total exam DLP = mGy-cm. This CT exam was performed using one or more of the following dose reduction techniques: Automated exposure control, adjustment of the mA and/or kV according to patient size, and/or use of iterative reconstruction technique. . FINDINGS: The the at current study reveals any elliptical shaped area of presumed hemorrhage within the right lateral basal ganglia measuring approximately 2.05 x 1.4 cm in AP and transverse dimension. . This hemorrhage appears subacute to chronic however clinical correlation with history is recommended. Surrounding low-attenuation edema and or necrotic brain tissue noted. . The hemorrhage and its attendant surrounding low-attenuation edema warrant necrosis exerts mild mass effect with slight effacement of the right sylvian fissure and mild compression of the right lateral ventricle however no significant right to left midline shift. This hemorrhage likely hypertensive in origin however clinical correlation is suggested. Mild chronic periventricular white matter ischemic changes with chronic left basal ganglia lacunar type infarcts. . Tiny chronic pontine lacunar type infarcts also noted. Mild generalized volume loss however no evidence of obstructive hydrocephalus. . Note made of polypoid like mucosal thickening and a mucous retention cyst formation both maxillary antra left larger than right. Impression: Subacute to chronic right basal ganglia hematoma likely hypertensive in origin. The hemorrhage is surrounded by a rim of low-attenuation edema and or necrotic brain tissue. Mild mass effect with mild effacement of the sylvian fissure and mild compression of the right lateral ventricle. Mild chronic white matter ischemic changes with scattered chronic lacunar-type infarct left basal ganglia and brainstem. Mild generalized volume loss.
--- NOTE | 2017-01-12 19:06 | CP.PCM.PN ---
Subjective - Date & Time of Evaluation Date of Evaluation: 01/12/17 Time of Evaluation: 08:00 - Subjective Subjective: no acute complaints at present ,still with some weakness Objective - Vital Signs/Intake and Output Vital Signs (last 24 hours): Temp Pulse Resp BP Pulse Ox 97.2 F L 64 20 114/57 L 100 01/12/17 08:26 01/12/17 17:08 01/12/17 08:26 01/12/17 17:08 01/12/17 08:26 - Medications Medications: Current Medications Amlodipine Besylate (Norvasc) 5 mg PO BID [facility] Last Admin: 01/12/17 17:08 Dose: Not Given Aspirin (Aspirin Chewable) 81 mg PO DAILY [facility] Labetalol HCl (Trandate) 100 mg PO Q8 [facility] Last Admin: 01/12/17 13:58 Dose: 100 mg Lisinopril (Zestril) 10 mg PO DAILY [facility] Last Admin: 01/12/17 08:23 Dose: 10 mg Olanzapine (Zyprexa) 5 mg PO HS [facility] Last Admin: 01/11/17 21:19 Dose: 5 mg Pantoprazole Sodium (Protonix Ec Tab) 40 mg PO DAILY [facility] Last Admin: 01/12/17 08:23 Dose: 40 mg - Labs Labs: 01/09/17 06:30 01/09/17 06:30 PT 11.7 Seconds (9.8-13.1) 01/05/17 07:26 INR 1.0 (0.9-1.2) 01/05/17 07:26 APTT 27.7 Seconds (25.6-37.1) 01/05/17 07:26 - Head Exam Head Exam: ATRAUMATIC, NORMAL INSPECTION, NORMOCEPHALIC - Eye Exam Eye Exam: EOMI, Normal appearance - ENT Exam ENT Exam: Mucous Membranes Moist - Neck Exam Neck Exam: Normal Inspection - Respiratory Exam Respiratory Exam: Clear to Ausculation Bilateral, NORMAL BREATHING PATTERN - Cardiovascular Exam Cardiovascular Exam: REGULAR RHYTHM - GI/Abdominal Exam GI & Abdominal Exam: Soft, Normal Bowel Sounds - Rectal Exam Rectal Exam: NORMAL INSPECTION - Exam External exam: NORMAL EXTERNAL EXAM - Extremities Exam Extremities Exam: Normal Capillary Refill - Back Exam Back Exam: NORMAL INSPECTION - Neurological Exam Neurological Exam: Alert, Awake Neuro motor strength exam: Left Upper Extremity: 3, Right Upper Extremity: 4, Left Lower Extremity: 3, Right Lower Extremity: 4 - Psychiatric Exam Psychiatric exam: Normal Affect, Normal Mood - Skin Skin Exam: Normal Color Assessment and Plan (1) Basal ganglia hemorrhage Assessment & Plan: continue rom,strenghtening, transfers, and gait training, continue with Pt, Ot speech and rec Status: Acute (2) Elevated troponin Status: Acute (3) Hypertensive emergency Status: Acute (4) Hypertensive intracerebral hemorrhage Assessment & Plan: monitor Bp Status: Acute
[2017-01-13] MEDS: Pantoprazole 40 mg EC Tab PO SCH (08:26)
--- NOTE | 2017-01-13 13:29 | CP.PCM.PN ---
Subjective - Date & Time of Evaluation Date of Evaluation: 01/13/17 Time of Evaluation: 11:00 - Subjective Subjective: no acute complaints Objective - Vital Signs/Intake and Output Vital Signs (last 24 hours): Temp Pulse Resp BP Pulse Ox 98 F 89 20 130/70 100 01/13/17 08:23 01/13/17 09:00 01/13/17 08:23 01/13/17 09:00 01/13/17 08:23 - Medications Medications: Current Medications Amlodipine Besylate (Norvasc) 5 mg PO BID [facility] Last Admin: 01/13/17 08:25 Dose: 5 mg Aspirin (Aspirin Chewable) 81 mg PO DAILY [facility] Last Admin: 01/13/17 08:25 Dose: 81 mg Labetalol HCl (Trandate) 100 mg PO Q8 [facility] Last Admin: 01/13/17 06:23 Dose: Not Given Lisinopril (Zestril) 10 mg PO DAILY [facility] Last Admin: 01/13/17 09:00 Dose: 10 mg Olanzapine (Zyprexa) 5 mg PO HS [facility] Last Admin: 01/12/17 21:52 Dose: 5 mg Pantoprazole Sodium (Protonix Ec Tab) 40 mg PO DAILY [facility] Last Admin: 01/13/17 08:26 Dose: 40 mg - Labs Labs: 01/09/17 06:30 01/09/17 06:30 PT 11.7 Seconds (9.8-13.1) 01/05/17 07:26 INR 1.0 (0.9-1.2) 01/05/17 07:26 APTT 27.7 Seconds (25.6-37.1) 01/05/17 07:26 - Head Exam Head Exam: ATRAUMATIC, NORMAL INSPECTION, NORMOCEPHALIC - Eye Exam Eye Exam: EOMI, Normal appearance, PERRL Pupil Exam: NORMAL ACCOMODATION - ENT Exam ENT Exam: Mucous Membranes Moist, Normal Exam - Respiratory Exam Respiratory Exam: NORMAL BREATHING PATTERN - Cardiovascular Exam Cardiovascular Exam: REGULAR RHYTHM - GI/Abdominal Exam GI & Abdominal Exam: Normal Bowel Sounds - Rectal Exam Rectal Exam: NORMAL INSPECTION - Exam External exam: NORMAL EXTERNAL EXAM - Extremities Exam Extremities Exam: Full ROM - Back Exam Back Exam: NORMAL INSPECTION - Neurological Exam Neurological Exam: Alert, Awake Neuro motor strength exam: Left Upper Extremity: 3, Right Upper Extremity: 3, Left Lower Extremity: 3, Right Lower Extremity: 3 - Psychiatric Exam Psychiatric exam: Normal Affect, Normal Mood - Skin Skin Exam: Dry, Intact Assessment and Plan (1) Basal ganglia hemorrhage Assessment & Plan: plan for Pt, Ot and rec therapy discussed Dc for 17 Status: Acute (2) Elevated troponin Status: Acute (3) Hypertensive emergency Status: Acute (4) Hypertensive intracerebral hemorrhage Status: Acute
--- NOTE | 2017-01-13 15:11 | CP.PCM.PN ---
Subjective - Date & Time of Evaluation Date of Evaluation: 01/13/17 Time of Evaluation: 02:50 - Subjective Subjective: Hospitalist Progress Note (Patient was seen and examined at 2:50 PM 01/13/17 620- 1) 51 year old female who was admitted to [facility] on 01/01/17 with complaints of left sided weakness, dysarthria, and elevated blood pressure (223/ 70). CT Head 01/01/17 revealed 3.6x1.7cm acute hemorrhage in Right Basal Ganglia. CH Head 01/04/17 showed no significant interval change in size of the acute hematoma in Right Basal Ganglia with moderate surrounding vasgogenic edema and mild mass effect on the right lateral ventricle without midline shift or herniation. MRI Brain 01/04/17 showed 3.8x1.9cm acute hematoma in Right Basal Ganglia. MRA Brain 01/04/17 showed short segment stenosis in the Left Mid M1 Segment and attenuation of the perisylvian branches, multifocal stenosis in the bilateral posterior cerebral arteries. Consultation with Neurosurgeon Dr. Fine while at [facility] revealed no surgical intervention at that time. She was also seen by Neurologist Dr. Ramos while at [facility] and it was recommended by him to start ASA and a Statin 2 weeks from 01/04/17 for the stenotic lesions revealed by the MRA Brain 01/04/17. Her blood pressure medications were optimized and patient was then transferred to [facility] on 01/04/17 for PT/OT. Currently upon FULL ROS there is NO chest pain, NO palpitations, NO SOB/Cough/ Wheezing, NO dysphagia/odynophagia, NO abdominal pain, NO n/v/d/c, NO black/ bloody stools, NO burning/pain with urination, NO lightheadedness/dizziness, NO new changes in vision/eye pain/blurriness of vision, NO new changes in hearing/ loss of hearing/ear pain, NO headaches, NO paresthesias Exam: GENERAL: AAOX3 (she knows where she is, what institution she was in, what happened to her, today's date), NAD, no more episodes of pausing before answering questions HEENT: NCA, EOMI, PERRLA, NO thyromegaly, NO cervical/supraclavicular/ submandibular lymphadenopathy, NO pharyngeal erythema/exudate, Oral Mucosa and Nasal Turbinates are dry. Cardio: NS1 and NS2, NO M/R/G Resp: CTA B/L, NO R/R/W GI: BSx4, Soft, NT, ND, NO HSM, NO guarding/rebound tenderness Ext: NO edema, Capillary Refill is 2 seconds, Pulses are strong and equal Neuro: CN II through XII are grossly intact, 5/5 strength with with flexion and extension of the bilateral UE and LE against my resistance, 2/4 DTR of the bilateral UE and LE Assessment and Plan: 1). Right Basal Ganglia Hemorrhagic CVA & Stenotic Lesion in Cerebral Circulation Please see HPI above for brief findings on radiology studies performed at [facility] Repeat CT Head 01/12/17 showed subacute/chronic 2.05x1.4 cm hemorrhage within Right Lateral Basal Ganglia (please see full report) Neurology Dr. Ramos help is appreciated and patient has been started by him on ASA 81 mg PO 1x/day on 01/03/17 Controll the blood pressure with Norvasc, Lisinopril, and Labetolol (please see Assessment and Plan #2) Continue PT/OT: I spoke with therapist and patient has increased strength of the extremities and is getting up and walking without assistance 2). HTN Norvasc 5 mg PO 2x/day Labetalol 100 mg PO TID Lisinopril 10 mg PO 1x/day 3). Hx Schizophrenia Apparently patient was placed on Abilify 10 mg PO 1x/day, Aricept 10 mg PO 1x/ day, and Zyprexa 5 mg PO 1x/day by a Psychiatrist in [place] the last time patient was there roughly 3 years ago in 2013. These medications were held while patient was in [facility] secondary to the patient's family stating that patient had developed right hand tremor as well as difficulty with speech. Again, I did not note any tremors of any of the extremities and did not note any difficulty with speech at the time of my exams today Patient was seen by Psychiatry Dr. Lynch and his help is appreciated. She was restarted on Zyprexa 5 mg PO 1x/day for now and will need to follow up with Psychiatry as an outpatient. 4). Prophylactic Measures Protonix 40 mg PO 1x/day for GI Prophylaxis Bilateral Sukhdev Stockings for DVT Prophylaxis (no anticoagulation for now considering the hemorrhagic CVA) Speech Therapy PT/OT I spoke with at the time of my exam today and I have instructed him to call PCP office today to schedule an appointment for follow up towards the end of next week as patient will need to have disability paperwork completed by the PCP. He expressed understanding. Patient is for discharge to home on Monday01/18/17. Viral Vega D.O. Objective - Vital Signs/Intake and Output Vital Signs (last 24 hours): Temp Pulse Resp BP Pulse Ox 98 F 80 20 107/70 100 01/13/17 08:23 01/13/17 13:27 01/13/17 08:23 01/13/17 13:27 01/13/17 08:23 - Medications Medications: Current Medications Amlodipine Besylate (Norvasc) 5 mg PO BID [facility] Last Admin: 01/13/17 08:25 Dose: 5 mg Aspirin (Aspirin Chewable) 81 mg PO DAILY [facility] Last Admin: 01/13/17 08:25 Dose: 81 mg Labetalol HCl (Trandate) 100 mg PO Q8 [facility] Last Admin: 01/13/17 13:27 Dose: Not Given Lisinopril (Zestril) 10 mg PO DAILY [facility] Last Admin: 01/13/17 09:00 Dose: 10 mg Olanzapine (Zyprexa) 5 mg PO HS [facility] Last Admin: 01/12/17 21:52 Dose: 5 mg Pantoprazole Sodium (Protonix Ec Tab) 40 mg PO DAILY [facility] Last Admin: 01/13/17 08:26 Dose: 40 mg - Labs Labs: 01/09/17 06:30 01/09/17 06:30 PT 11.7 Seconds (9.8-13.1) 01/05/17 07:26 INR 1.0 (0.9-1.2) 01/05/17 07:26 APTT 27.7 Seconds (25.6-37.1) 01/05/17 07:26
[2017-01-14] MEDS: Pantoprazole 40 mg EC Tab PO SCH (08:26)
[2017-01-15] MEDS: Pantoprazole 40 mg EC Tab PO SCH (08:36)
[2017-01-15 21:34] VITALS: RESP 20
[2017-01-16] MEDS: Pantoprazole 40 mg EC Tab PO SCH (08:45)
[2017-01-17 07:35] VITALS: BP 132/68; PULSE 68; TEMP 98.1; O2SAT 97
[2017-01-17] MEDS: Pantoprazole 40 mg EC Tab PO SCH (08:39)
--- NOTE | 2017-01-17 10:23 | CP.PCM.DIS ---
Provider - Provider Date of Admission: 01/04/17 22:56 Attending physician: Apollo Emmanuel Primary care physician: None Consults: Neurology Dr. Ramos Physiatry Psychiatry Dr. Lynch Time Spent in preparation of Discharge (in minutes): 40 Hospital Course - Lab Results Lab Results: Most Recent Lab Values WBC 6.8 K/uL (4.8-10.8) 01/09/17 06:30 RBC 4.25 Mil/uL (3.80-5.20) 01/09/17 06:30 Hgb 11.6 g/dL (12.0-16.0) L 01/09/17 06:30 Hct 36.2 % (34.0-47.0) 01/09/17 06:30 MCV 85.0 fl (81.0-99.0) 01/09/17 06:30 MCH 27.4 pg (27.0-31.0) 01/09/17 06:30 MCHC 32.2 g/dL (33.0-37.0) L 01/09/17 06:30 RDW 15.0 % (11.5-14.5) H 01/09/17 06:30 Plt Count 203 K/uL (130-400) 01/09/17 06:30 MPV 10.6 fl (7.2-11.7) 01/09/17 06:30 Neut % (Auto) 58.2 % (50.0-75.0) 01/09/17 06:30 Lymph % (Auto) 29.4 % (20.0-40.0) 01/09/17 06:30 [place] % (Auto) 9.8 % (0.0-10.0) 01/09/17 06:30 Eos % (Auto) 2.1 % (0.0-4.0) 01/09/17 06:30 Baso % (Auto) 0.5 % (0.0-2.0) 01/09/17 06:30 Neut # 4.0 K/uL (1.8-7.0) 01/09/17 06:30 Lymph # 2.0 K/uL (1.0-4.3) 01/09/17 06:30 [place] # 0.7 K/uL (0.0-0.8) 01/09/17 06:30 Eos # 0.1 K/uL (0.0-0.7) 01/09/17 06:30 Baso # 0.0 K/uL (0.0-0.2) 01/09/17 06:30 PT 11.7 Seconds (9.8-13.1) 01/05/17 07:26 INR 1.0 (0.9-1.2) 01/05/17 07:26 APTT 27.7 Seconds (25.6-37.1) 01/05/17 07:26 Sodium 138 mmol/l (132-148) 01/09/17 06:30 Potassium 4.4 MMOL/L (3.6-5.0) 01/09/17 06:30 Chloride 98 mmol/L (98-107) 01/09/17 06:30 Carbon Dioxide 30 mmol/L (22-30) 01/09/17 06:30 Anion Gap 14 (10-20) 01/09/17 06:30 BUN 26 mg/dl (7-17) H 01/09/17 06:30 Creatinine 1.2 mg/dL (0.7-1.2) 01/09/17 06:30 Est GFR ( Amer) 58 01/09/17 06:30 Est GFR (Non-Af Amer) 48 01/09/17 06:30 Random Glucose 90 mg/dL (65-105) 01/09/17 06:30 Calcium 9.6 mg/dL (8.4-10.2) 01/09/17 06:30 Triglycerides 142 mg/DL (0-149) 01/05/17 07:26 Cholesterol 186 mg/dL (0-199) 01/05/17 07:26 LDL Cholesterol Direct 84 mg/dL (0-129) 01/05/17 07:26 HDL Cholesterol 52 MG/DL (30-70) 01/05/17 07:26 - Hospital Course Hospital Course: Hospitalist Discharge Note (Patient was seen and examined at 10:00 AM 01/17/17 620-1) 51 year old female who was admitted to [facility] on 01/01/17 with complaints of left sided weakness, dysarthria, and elevated blood pressure (223/ 70). CT Head 01/01/17 revealed 3.6x1.7cm acute hemorrhage in Right Basal Ganglia. CH Head 01/04/17 showed no significant interval change in size of the acute hematoma in Right Basal Ganglia with moderate surrounding vasgogenic edema and mild mass effect on the right lateral ventricle without midline shift or herniation. MRI Brain 01/04/17 showed 3.8x1.9cm acute hematoma in Right Basal Ganglia. MRA Brain 01/04/17 showed short segment stenosis in the Left Mid M1 Segment and attenuation of the perisylvian branches, multifocal stenosis in the bilateral posterior cerebral arteries. Consultation with Neurosurgeon Dr. Fine while at [facility] revealed no surgical intervention at that time. She was also seen by Neurologist Dr. Ramos while at [facility] and it was recommended by him to start ASA and a Statin 2 weeks from 01/04/17 for the stenotic lesions revealed by the MRA Brain 01/04/17. Her blood pressure medications were optimized and patient was then transferred to [facility] on 01/04/17 for PT/OT. I spoke with extensively at the time of my exam on 01/13/17 and I have instructed him to call PCP office (he was instructed to call the number on the back of insurance card to get a list a covered physicians) on 01/13/17 to schedule an appointment for follow up towards the end of next week as patient will need to have disability paperwork completed by the PCP. He expressed understanding.She is being discharged to home today 01/17/17 in stable condition. Please see the individual Assessment and Plans below for full details. Currently upon FULL ROS there is NO chest pain, NO palpitations, NO SOB/Cough/ Wheezing, NO dysphagia/odynophagia, NO abdominal pain, NO n/v/d/c, NO black/ bloody stools, NO burning/pain with urination, NO lightheadedness/dizziness, NO new changes in vision/eye pain/blurriness of vision, NO new changes in hearing/ loss of hearing/ear pain, NO headaches, NO paresthesias Exam: GENERAL: AAOX3 (she knows where she is, what institution she was in, what happened to her, today's date), NAD, no more episodes of pausing before answering questions HEENT: NCA, EOMI, PERRLA, NO thyromegaly, NO cervical/supraclavicular/ submandibular lymphadenopathy, NO pharyngeal erythema/exudate, Oral Mucosa and Nasal Turbinates are dry. Cardio: NS1 and NS2, NO M/R/G Resp: CTA B/L, NO R/R/W GI: BSx4, Soft, NT, ND, NO HSM, NO guarding/rebound tenderness Ext: NO edema, Capillary Refill is 2 seconds, Pulses are strong and equal Neuro: CN II through XII are grossly intact, 5/5 strength with with flexion and extension of the bilateral UE and LE against my resistance, 2/4 DTR of the bilateral UE and LE Assessment and Plan: 1). 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 Ramos help is appreciated and patient has been started by him on ASA 81 mg PO 1x/day on 01/03/17 Atorvastatin 20 mg PO QHS Controll the blood pressure with Norvasc, Lisinopril, and Labetolol (please see Assessment and Plan #2) Continue outpatient PT and Speech Therapy at [facility] Follow up with Neurologist Dr. Kesha Gardiner as an outpatient 2). HTN Norvasc 5 mg PO 2x/day Labetalol 100 mg PO TID Lisinopril 10 mg PO 1x/day 3). Hx Schizophrenia Apparently patient was placed on Abilify 10 mg PO 1x/day, Aricept 10 mg PO 1x/ day, and Zyprexa 5 mg PO 1x/day by a Psychiatrist in [place] the last time patient was there roughly 3 years ago in 2013. These medications were held while patient was in [facility] secondary to the patient's family stating that patient had developed right hand tremor as well as difficulty with speech. Again, I did not note any tremors of any of the extremities and did not note any difficulty with speech at the time of my exams today Patient was seen by Psychiatry Dr. Lynch and his help is appreciated. She was restarted on Zyprexa 5 mg PO 1x/day for now and will need to follow up with Psychiatry as an outpatient. 4). Prophylactic Measures Protonix 40 mg PO 1x/day for GI Prophylaxis Bilateral Sukhdev Stockings for DVT Prophylaxis (no anticoagulation for now considering the hemorrhagic CVA) Speech Therapy PT/OT The following instructions were provided to patient and her family (daughter) at the time of discharge and a copy of this discharge summary was provided: 1). Schedule follow up with Primary Care Physician (if you have not done so already) as soon as possible. If you have not done so, call the number at the back of your insurance card to obtain a list of approved physicians. This physician will be your primary care physician to help coordinate your care and complete any additional paperwork (such as disability forms) and provide with you with any needed referrals for specialists (such as Neurologist and Psychiatrist). Bring this discharge summary with you for your Primary Care Physician's review. 2). Follow up with Neurologist Dr. Kesha Gardiner ([phone]) on Monday01/23/17 at 2 PM. His office is located on [address] [place] [address] in [place], [place]. Bring this discharge summary with you for his review. 3). Follow up with with Speech Therapy ([phone] or [phone]) at [facility] on Monday01/20/17 at 10:30 AM. [facility] is located at [address] [place] [address] in [place], [place]. 4). Follow up with Physical Therapy also at [facility] on Monday01/23/17 at 8:30 AM. 5). The following prescriptions (with 30 day supply) have been provided to you. Refills must be obtained through your Primary Care Physician: Norvasc 5 mg 1 tablet by mouth 1x/day (9 AM) Labetalol 100 mg 1 tablet by mouth 2x/day (7 AM and 7 PM) Lisinopril 10 mg 1 tablet by mouth 1x/day (3 PM) Olanzapine 5 mg 1 tablet by mouth at bed time Atorvastatin 20 mg 1 tablet by mouth at dinner time 6). You musts also take the following medication which you may purchase without a prescription: Aspirin 81 mg 1 tablet by mouth 1x/day (7 AM). 7). Through your Primary Care Physician obtain referral for Psychiatrist. Appointment with this Psychiatrist should be made within the next 30 days. Please bring this discharge summary with you to your appointment for the Psychiatrist's review. 8). Please be well and take care. Viral Vega D.O. Discharge Exam - Head Exam Head Exam: ATRAUMATIC, NORMAL INSPECTION, NORMOCEPHALIC Discharge Plan - Follow Up Plan Condition: GOOD Disposition: HOME/ ROUTINE Instructions: Labetalol (By mouth), Lisinopril (By mouth), Aspirin (By mouth), Amlodipine (By mouth), Olanzapine (By mouth), Atorvastatin (By mouth), Heart Healthy Diet (DC), Hemorrhagic Stroke (DC), Hypertension (DC), Hypertension (GEN ) Additional Instructions: FOLLOW UP APPOINTMENT 1. Dr. Kesha Gardiner (Neurology) Appointment: [facility] 01/23/2017 at 2PM [address] [place] [address] 2. Primary care physician: Please follow up in 1 week. Per daughter they will find PMD. 3. Outpatient Speech therapy: [facility] ([facility] ) [address] [place] [address] or Appt: 01/20/2017 at 1030AM 4. Outpatient PT: Appt 01/23/2017 at 830AM
--- NOTE | 2017-01-17 13:07 | PN ---
DATE: 01/17/2017 The patient is feeling fine. No acute complaints at present. PHYSICAL EXAMINATION: VITAL SIGNS: Stable. NECK: Supple. CHEST: Symmetrical. HEART: Sounds S1, S2. ABDOMEN: Benign. EXTREMITIES: No clubbing, cyanosis, or edema. The patient with mild weakness on the left arm, left leg. No other acute complaints noted. IMPRESSION: Intracerebral hemorrhage, International Classification of Diseases code of 02.9; schizop hrenia, hypertension, gait difficulty. PLAN: Status post physical, occupational therapy for range of motion, strengthening, transfers, ambu lation and gait training. The patient for discharge today. Additional rehab therapy after discharge . Discharge planning discussed with the patient. John Kwon MD cc: [id number] TT: 01/17/2017 13:06:23 Confirmation # [id number] Dictation # [id number]
== END 2017-01-17 11:26 | disposition home or self-care (01) | DRG 12 ==
PROVIDERS: ADMIT Internal Medicine; ATTEND Internal Medicine
PROC: F07Z9FZ Gait Training/Functional Ambulation Treatment using Assistive, Adaptive, Supportive or Protective Equipment (ICD-10-PCS; principal; 2017-01-04)
PROC: F06Z6MZ Communicative/Cognitive Integration Skills Treatment using Augmentative / Alternative Communication Equipment (ICD-10-PCS; 2017-01-04)
PROC: F08Z4FZ Home Management Treatment using Assistive, Adaptive, Supportive or Protective Equipment (ICD-10-PCS; 2017-01-04)
PROC: F07M6FZ Therapeutic Exercise Treatment of Musculoskeletal System - Whole Body using Assistive, Adaptive, Supportive or Protective Equipment (ICD-10-PCS; 2017-01-05)
DX: I69.154 Hemiplegia and hemiparesis following nontraumatic intracerebral hemorrhage affecting left non-dominant side (principal); F20.9 Schizophrenia, unspecified; I69.122 Dysarthria following nontraumatic intracerebral hemorrhage; I10 Essential (primary) hypertension; R26.89 Other abnormalities of gait and mobility; Z79.82 Long term (current) use of aspirin